=== PATIENT | female | born 1975 | race Caucasian/White ===

== ENCOUNTER 2016-10-07 07:26 | Observation (INO) | payer OTHER ==
[2016-10-07] VITALS (7 sets, daily range): BP systolic 133–152; BP diastolic 86–92; PULSE 79–94; RESP 12–20; O2SAT 96–98
[~2016-10-07] VITALS: Ht 162.6 cm; Wt 109.1 kg
[~2016-10-07 07:26] MED LIST: CLONAZEPAM0.5 M1 PO; IND10 PO; LEVO88TA28 PO; PROZAC20 M1 PO; [UNRECOGNIZED DRUG - OTHER]
--- NOTE | 2016-10-07 07:50 | ED.REPORT ---
HPI-Stroke / CVA Oct 07, 2016 ED Provider: Bill Bronson MD A pleasant 40 year old female with a history of HTN, and thyroid disease presents to the ER via POV complaining of lateralized left side numbness onset upon awakening this morning. Last known normal 21:00 last night. She states that she woke up with tingling of her left face, localized around her nose, that has since progressed to numbness of the left upper and lower extremities. Associated symptom of mild bilateral blurred vision. Patient denies changes in speech, difficulty swallowing, history of CVA, TIA or similar, recent medication changes, and anticoagulant use. Upon further questioning she admits to slight lightheadedness. Currently she is on hydrochlorothiazide, and scheduled to have blood work done in a month to determine if she should continue depression medications. Recently treated for a sinus infection with unknown antibiotic. Nursing Notes Stated Complaint: NUMBNESS LEFT SIDE OF FACE Chief Complaint: Neuro Symptoms/ Deficits Nursing Notes Reviewed: Yes Allergies: Coded Allergies: Penicillins (Verified Allergy, Severe, LOCALIZED SWELLING, 05/27/09) ciprofloxacin (Verified Allergy, Unknown, 10/07/16) ciprofloxacin HCl (Verified Allergy, Unknown, 10/07/16) latex (Verified Adverse Reaction, Mild, 04/26/12) sensitive to topical latex, redness Scheduled ([Trivox]) 8 MG DAILY (Reported) FLUoxetine-Expunged Drug, Do not Renew! (Prozac-Expunged Drug, Do not Renew!) 20 Mg Cap 40 MG PO DAILY (Reported) Levothyroxine-Expunged Drug, Do Not Renew! (Levoxyl-Expunged Drug, Do Not Renew! ) 88 Mcg Tablet 88 MCG PO DAILY (Reported) Propranolol-Expunged Drug, Do Not Renew! (Propranolol-Expunged Drug, Do Not Renew!) 10 Mg Tab 20 MG PO BID (Reported) clonazePAM-Expunged Drug, Do Not Renew! (clonazePAM-Expunged Drug, Do Not Renew! ) 0.5 Mg Tablet 0.5 MG PO DAILYP (Reported) General Time Seen by Provider: 07:47 Chief Complaint Numbness Face left, Arm left, Leg left Hx Obtained From: Patient Arrived By: Walk-in Time last known well 21:00 last night Sudden in Onset?: No Symptom Duration: Since onset Progression Since Onset: Gradually worsening Associated with: Denies: Gait problem, Speech problem Pertinent Negative: Pt denies other symptoms Context Related History: Denies: Cerebrovascular accident, Diabetes mellitus, Transient ischemic attack Similar Sx Previous: No Risk Factors )( TPA Administration/Criteria Stroke Thrombolytic Therapy : TPA Administered Intravenously: No, not indicated NIH Stroke Scale Level of Consciousness: Alert and responsive (0) Ask Month & Age: Both questions right (0) Open/Close Eyes/Hand Pot Annealer: Performs both tasks (0) Horizontal EO Movements: None (0) Visual Silvestre: No visual loss (0) Facial Palsy: Normal symmetry (0) Right Arm Motor Drift (10s): No drift 10 sec (0) Left Arm Motor Drift (10s): Drift, not touch bed (1) Right Leg Motor Drift (5s): No drift 5 sec (0) Left Leg Motor Drift (5s): Drift, not touch bed (1) Limb Ataxia FNF/Heel-Portillo: No ataxia (0) Sensation (Arms/Legs/Face): P-prick dull but felt (1) Language Aphasia: No aphasia, normal (0) Dysarthria: No dysarthria, normal (0) Extinction/Inattention: No exctinct/inattent (0) NIHSS Score: 3 Time NIHSS Performed: 08:12 Date NIHSS Performed: Oct 07, 2016 )( CVA Risk Stratification HypertensionNo Age >60, No Diabetes mellitus, No Hyperlipidemia, No Prior CVA/ TIA Risk factors reviewed Kelsie Coma Score > Age 5 Eye Opening: Open spontaneously (4) Verbal Response: Oriented (5) Motor Response: Obeys commands (6) [place] Coma Score: 15 Past Medical History Past Medical History Anxiety Reports: Hypertension, Denies: Coronary artery disease, Diabetes mellitus, Hyperlipidemia, Stroke, Transient ischemic attack Reports: Depression, Thyroid disease Past Surgical History Reports: Cholecystectomy, Hysterectomy, Tonsillectomy Family History Lung Cancer DM Smoking History Never Smoker Social History Other Social History: Good social support, Ambulatory Status Independent Review of Systems Constitutional: Denies: Chills, Fever Eyes: Reports: Blurred bilateral Respiratory: Denies: Non-productive cough, Shortness of breath Cardiovascular: Denies: Chest pain GI: Denies: Dysphagia Neurologic: Reports: Lightheaded, Numbness (Left face, Arm, Leg), Denies: Change LOC, Confusion, Headache, Problem walking, Slurred speech, Unable to speak, Vision change Complete sys rev & neg: except as marked. Physical Exam Initial Vital Signs Vital Signs (First) Date Time Temp Pulse Resp B/P Pulse Ox O2 Delivery O2 Flow Rate FiO2 10/07/16 07:32 36.4 91 12 133/91 97 Room Air Initial VS: Reviewed Skin: Warm, Dry, No cyanosis Psychiatric: Mood/affect normal, Behavior normal, Normal thought content General/Constitutional: Awake, Alert, Well developed, Well nourished Head / Eyes: Atraumatic, Normocephalic Neck: Supple, Full range of motion, No swelling, Non-tender, No carotid bruit Respiratory / Chest: Breath sounds NL, Breath sounds = bilat, No respiratory distress, No rales, No rhonchi, No wheezing Cardiovascular: Heart rate NL, Regular rhythm, Heart sounds NL, No murmurs, Peripheral circulation NL Neurologic: Oriented X3, Speech NL See NIH Stroke Scale in the Risk section of this note. Interpretation & Diagnostics Lab Results Interpretation Result Diagram: 10/07/16 0800 10/07/16 0800 Test 10/07/16 08:00 10/07/16 09:14 White Blood Count 7.0th/mm3 (3.8-10.1) Red Blood Count 4.91mil/mm3 (3.90-5.20) Hemoglobin 14.2g/dL (12.0-15.6) Hematocrit 41.6% (35.0-46.0) Mean Corpuscular Volume 84.7fL (81-100) Mean Corpuscular Hemoglobin 28.9pg (27.0-35.0) Mean Corpuscular Hemoglobin Concent 34.1% (32.0-37.0) Red Cell Distribution Width 12.9% (12.3-15.4) Platelet Count 278bil/L (150-400) Neutrophils (%) (Auto) 70.0% (40-74) Lymphocytes (%) (Auto) 21.6% (14-46) Monocytes (%) (Auto) 5.7% (4-12) Eosinophils (%) (Auto) 2.0% (0-5) Basophils (%) (Auto) 0.4% (0-3) Prothrombin Time 9.9sec (8.1-12.5) Prothromb Time International Ratio 0.93ratio Activated Partial Thromboplast Time 26.4sec (22.8-33.0) Sodium Level 138mEq/L (134-144) Potassium Level 3.6mEq/L (3.5-5.2) Chloride Level 103mEq/L (97-108) Carbon Dioxide Level 21mmol/L (18-29) Blood Urea Nitrogen 10mg/dL (6-24) Creatinine 0.53mg/dL (0.57-1.00) Estimat Glomerular Filtration Rate 183mL/min (>59) Glucose Level 134mg/dL (60-99) Calcium Level 8.7mg/dL (8.5-10.1) Total Bilirubin 0.3mg/dL (0.0-1.2) Aspartate Amino Transf (AST/SGOT) 21U/L (0-50) Alanine Aminotransferase (ALT/SGPT) 23U/L (0-32) Alkaline Phosphatase 95U/L (25-150) Troponin T 0.010ug/L (0.0-0.011) Total Protein 6.7g/dL (6.4-8.4) Albumin 4.0g/dL (3.4-5.0) Urine Opiates Screen Negative Urine Methadone Screen Negative Urine Barbiturates Screen Negative Urine Amphetamines Screen Negative Urine Benzodiazepines Screen Negative Urine Cocaine Metabolite Screen Negative Urine Cannabinoids Screen Negative Alcohol, Quantitative < 10mg/dL (0-10) Urine Color Straw (YELLOW) Urine Appearance Hazy (CLEAR,HAZY) Urine pH 7.0 (5.0-8.0) Urine Specific [place] 1.015 (1.003-1.035) Urine Protein Negativemg/dL (NEG,TRACE) Urine Glucose (UA) Negativemg/dL (NEGATIVE) Urine Ketones Negativemg/dL (NEGATIVE) Urine Occult Blood Negative (NEGATIVE) Urine Nitrite Negative (NEGATIVE) Urine Bilirubin Negative (NEGATIVE) Urine Urobilinogen Normalmg/dL (NORMAL) Urine Leukocyte Esterase Negative (NEGATIVE) Urine RBC 0-2/hpf (0-2) Urine WBC 0-5/hpf (0-5) Urine Epithelial Cells Occasional/hpf (NONE-MOD) Urine Crystals None seen (NONE SEEN) Urine Bacteria Few/hpf (NONE-FEW) Urine Hyaline Casts None/lpf (NONE) Urine Granular Casts None seen (NONE SEEN) Urine Waxy Casts None seen (NONE SEEN) Urine Red Blood Cell Casts None seen (NONE SEEN) Urine White Blood Cell Casts None seen (NONE SEEN) Urine Mucus None seen (None Seen) Urine Trichomonas None seen (NONE SEEN) Urine Yeast None (NONE SEEN) Urinalysis Comment None Urine Culture Reflexed Not indicated Lab Results Interpretation: Urinalysis negative. ECG Interpretation ECG Interpretation: Sinus rhythm, rate 93 Q waves in v1-v2, 3, and aVF unchanged from prior ECG. Time: 08:31 Interpreted by: ED physician CT Head Interpretation IMPRESSION: No acute intracranial abnormality. Dictated by: Rosio Bell M.D. on 10/07/2016 at 8:09 Approved by: Rosio Bell M.D. on 10/07/2016 at 8:09 Study: Head CT no contrast Interpretation / Wet Read by: Interpret - Radiologist Re-Eval/Medical Decision Med Decision/Clinical Course 40-year-old female history of hypertension, depression presenting with left-sided numbness and blurry vision that she noted when she woke up this morning. Also on abx for sinus infection. She was last normal when she went to bed last night at 9 PM. She is well out of the window for TPA. NIH stroke scale is 3. She has left upper extremity and left lower extremity drift and decreased sensation in complaining of blurry vision though able to count fingers. CT brain no acute pathology. Labs are stable. Patient will be admitted for CVA workup. Source of Hx: Old records Re-Evaluation/Progress : Time of Eval: 08:12 Re-Evaluation/Progress Note: Completed physical examination. Discussed physical examination results, differential diagnoses, and updated patient on the plan of care with plan to admit for stroke workup. Patient is amenable to the plan. Consultation : Referral / Consult Name: Linda Stone MD Consulted With: Hospitalist Call Returned at: 09:55 Seedling Sorter: Agrees with eval, Agrees with plan, Accepts admit Counseled Regarding: Diagnosis, Lab results, Need for admission Patient Discharge & Departure Impression: Primary Impression: CVA (cerebral vascular accident) Disposition: ADMITTED TO HOSPITAL Discharge Condition All VS Reviewed: Yes Condition: Stable Referrals: Amanda Brice MD (PCP) Scribe Attestation Portions of this note were transcribed by Ghanshyam Blue. IDr. Bronson, personally performed the history, physical exam and medical decision-making; I reviewed and confirmed the accuracy of the information in the transcribed note. Signed by: Gucci Rondon, 10/07/2016 - 09:56 copies to: Amanda Brice MD, Ben M MD Oct 07, 2016 07:50 GHANSHYAM BLUE Oct 07, 2016 07:59
--- NOTE | 2016-10-07 08:11 | DRSVH ---
PROCEDURE: CT BRAIN WITHOUT CONTRAST ([id number]) INDICATIONS: Stroke TECHNIQUE: Noncontrast 4.5 mm thick angled axial sections acquired from the foramen magnum to the vertex, with c oronal reformats. COMPARISON: [facility] [place] , CT, BRAIN W/O CONTRAST, 11/07/2007, 18:25. FINDINGS: Image quality: Excellent. CSF spaces: Basal cisterns are patent. No extra-axial fluid collections. Ventricles are normal in size and shape. Brain: No midline shift. No intracranial masses or hemorrhage. Brownlee-white matter interface is norm al. Skull and face: Calvarium and visualized facial bones are intact, without suspicious lesions. Sinuses: Visualized sinuses and mastoids are clear. IMPRESSION: No acute intracranial abnormality. Dictated by: Rosio Bell M.D. on 10/07/2016 at 8:09 Approved by: Rosio Bell M.D. on 10/07/2016 at 8:09
[2016-10-07 08:20] LABS: BASOPHILS % (AUTO) 0.4 % (0-3); MONOCYTES % (AUTO) 5.7 % (4-12); Mean Corpuscular Hemoglobin 28.9 pg (27.0-35.0); Mean Corpuscular Volume 84.7 fL (81-100); Platelet Count 278 bil/L (150-400)
[2016-10-07] MEDS ORDERED: Ondansetron 2 mg/mL 2 mL Inj IVPUSH ONE (08:30)
[2016-10-07 08:48] LABS: INR 0.93 ratio
[2016-10-07 08:53] LABS: TROPONIN T 0.01 ug/L (0.0-0.011)
[2016-10-07 09:24] LABS: APPEARANCE,URINE HAZY (CLEAR,HAZY); COLOR,URINE STRAW (YELLOW); OCCULT BLOOD,URINE NEGATIVE (NEGATIVE); UROBILINOGEN,URINE NORMAL (NORMAL)
--- NOTE | 2016-10-07 09:47 | NUR ---
Evaluation completed. Please go to "Notes" then click on "Assessments and Notes" (bottom left corner of screen). Then select appropriate discipline tab on top of screen.
[2016-10-07] MEDS ORDERED: Ondansetron 2 mg/mL 2 mL Inj IVPUSH PRN (10:00)
[2016-10-07] MEDS ORDERED: Polyethylene Glycol (PEG) 17 Gm Powder PO PRN (10:00)
[2016-10-07] MEDS ORDERED: DOXY100C2 PO (12:56)
[2016-10-07] MEDS ORDERED: THYR30TA2 PO (12:56)
[2016-10-07] MEDS ORDERED: THYR120T2 PO (12:56)
[2016-10-07] MEDS ORDERED: BUPR300T52 PO (12:56)
[2016-10-07] MEDS ORDERED: HYDR25TA4 PO (12:57)
[2016-10-07] MEDS ORDERED: FLUO20CA25 PO (12:57)
[2016-10-07] MEDS ORDERED: FAMO20T PO (12:57)
[2016-10-07] MEDS ORDERED: EPIN0.3P17 IJ (12:59)
--- NOTE | 2016-10-07 13:17 | NUR ---
Admit nurse note Admission assessment completed in the ER. Pt. denies complaints now but wonders about plan of care and MRI results. Hospitalist is yet to see pt. to pt. states she will wait to ask hospitalist her questions. Med rec completed per erx and pt. recall. Pt. states she is anaphylactically allergic to latex. Allergy sticker placed and other allergies verified. Primary RN notified of latex allergy. PT. declines information on advance directives. Pt. has hx of sleep apnea with CPAP but after a sleep study in July was told her sleep apnea has resolved since she has stopped being prescribed heavily sedating medications. She states she was told to use the CPAP at her discretion "just for snoring." at bedside. Report given to Deedee Rogers.
--- NOTE | 2016-10-07 13:23 | DRSVH ---
PROCEDURE: MRI STROKE PROTOCOL ([id number]) Pre- and post-contrast brain MRI, non-contrast brain MR angiogram, pre- and postcontrast neck MR rubio ogram INDICATIONS: lt sided weakness suspicious for stroke TECHNIQUE: Brain: Noncontrast axial T1 spin echo, axial T2 fast spin echo, sagittal and axial FLAIR, coronal T2 fast spin echo, axial gradient echo, axial diffusion and ADC through the brain. After the administr ation of contrast, axial 3D VIBE of the cranial vasculature and brain. Brain MRA: Non-contrast 3-D time of flight MR angiogram, with multiple nynhyht-zyzlmvaua-ezirvrfnzi (MIP) reformats performed. Neck MRA: Axial and sagittal TruFISP through the neck. Coronal dynamic MR angiogram during administ ration of contrast in the arterial and venous phases, with 3-dimenstional omrlyaa-jydiogogf-jywbfevsc n (MIP) reformats constructed from subtraction images. COMPARISON: None. FINDINGS: Image quality: Excellent. BRAIN: CSF spaces: Ventricles are normal in size and shape. Basal cisterns are patent. No extra-axial flu id collections. Brain: No intracranial bleeds or mass effects. Brownlee-white matter interface is normal. Diffusion we ighted images show no acute ischemic insults. Brainstem appears normal. 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 Normal intravascular flow voids are present. No abnormal intracranial enhanceme nt. Skull and face: Calvarial marrow signal is normal. Orbits appear normal. Sinuses: Sinuses and mastoids are clear. BRAIN MR ANGIOGRAM: Anterior circulation: Intracranial internal carotid arteries are normal in size and enhancement. Th e flow within the paired anterior cerebral arteries is normal and symmetric. The flow within the mid dle cerebral arteries is normal and symmetric. The anterior communicating artery is seen. No stenos es or occlusions. 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 The left ophthalmic artery aneurysm is oriented superior and medial. Posterior circulation: The visualized portions of the vertebral arteries demonstrate normal caliber, and join to form a normal appearing basilar artery. The flow within the posterior cerebral arteries is normal and symmetric. No stenoses, occlusions, or aneurysms. NECK MR ANGIOGRAM: Carotids: Great vessels demonstrate bovine variant anatomy as they arise from the aortic arch. The origins of the common carotid arteries appear patent. The calibers and courses of both common caroti d arteries are normal. The bifurcation regions appear normal bilaterally. The internal carotid perico erin demonstrate normal course and caliber. Posterior circulation: The origins of the vertebral arteries appear patent. More superior portions of both vertebral arteries demonstrate normal course and caliber, and join to form a normal appearing basilar artery. Miscellaneous: Subclavian arteries appear patent. Pre-contrast images through the neck show no soft tissue abnormalities. IMPRESSION: BRAIN MRI: 1. No acute intracranial disease process. 2. No areas of acute or chronic infarction. BRAIN MR ANGIOGRAM: 1. 3 x 4 mm left ophthalmic artery aneurysm. 2. Otherwise, negative MR angiogram of the head. NECK MR ANGIOGRAM: Negative examination. Findings discussed with Dr. Stone on 10/07/2016 at 1321 hrs. The estimate of stenosis included in the report of the imaging study was calculated using the NASCET method Dictated by: Georgiana Ramírez MD, PhD on 10/07/2016 at 12:54 Approved by: Georgiana Ramírez MD, PhD on 10/07/2016 at 13:22
--- NOTE | 2016-10-07 14:37 | PCM.DIMED ---
Discharge Instructions Date of Service Oct 07, 2016 Dates of Hospitalization Oct 07, 2016 at 12:54 Discharge Diagnosis Discharge Diagnosis left sided facial numbness Left ophthalmic artery aneurysm Patient Instructions You were hospitalized with stroke-like symptoms, found to have brain aneurysm, therefore, transferred to tertiary hospital for monitoring, possible intervention. Follow-up plan Please follow up with your primary doctor after you are discharged from [facility]. Follow-up Provider: Danielle Urena Follow-up with PCP in: 1 week Linda Stone MD Oct 07, 2016 14:37
--- NOTE | 2016-10-07 15:01 | PCM.HPMED ---
Subjective Date of Service Oct 07, 2016 Primary Provider: Admitting Physician: Linda Stone MD Primary Care Physician: Danielle Urena Attending Physician: Linda Stone MD Chief Complaint: lt sided facial numbness History of Present Illness: 40-year-old female with obesity, hypertension, hypothyroidism presented with left facial numbness, lightheadedness starting this morning. Patient was usual state of health until this morning. Patient treated with doxycycline 6 days ago for sinus infection, prescribed by primary doctor. Patient tolerated very well, still has some sinus congestion otherwise patient denied any unusual concerns recently. Patient woke up around 6 AM, noticed numbness and tingling mostly on left face, with mild blurry vision bilaterally but no blackout, initially symptoms were mild but continued, decided to come to hospital. Pt denied slurred speech, weakness of arms or legs, headache. Although pt was also mildly lightheaded Since in ED V/S, [id number], noted to have NIHSS3, CTH was negative. decided not to give tPA, out of window(last normal last night before went to bed). MR stroke protocol obtained which showed newly found lt ophthalmic aneurysm. Review of Systems: Pertinent positives as noted in history of present illness. All other systems were reviewed and are negative Allergies Coded Allergies: Penicillins (Verified Allergy, Severe, LOCALIZED SWELLING, 10/07/16) latex (Verified Allergy, Severe, Anaphylaxis, 10/07/16) ciprofloxacin (Verified Adverse Reaction, Intermediate, Nausea,Vomiting, ) Home Medications Hydrochlorothiazide 12.5 mg daily T3 20, 130mcg alternating daily PMH Hypertension Hypothyroidism Recent sinus infection Surgical History Cholecystectomy Tonsillectomy Hysterectomy Breast lumps removal Family History Father had diabetes and hypertension, traumatic head injury with stroke seizure Mother had lung cancer Social History Hx Alcohol Use: No Hx Substance Use: No Hx Tobacco Use: No Smoking Status: Never Smoker Additional Information 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 Exam Vital Signs Vital Sign - Last Date Time Temp Pulse Resp B/P Pulse Ox O2 Delivery O2 Flow Rate FiO2 10/07/16 09:23 89 20 147/87 98 Room Air 10/07/16 07:32 36.4 Exam NAD, comfortably laying down on the bed no JVD, MMM, no LAD RRR, nl s1, s2 no mrg CTAB, no w,c S,ND,NT,normoactive BS+ warm, no edema, pulses 2/2 Neuro:speech coherent, fluent, AAOx3 gait steady PERRLA, EOMI, symmetric face, no uvulae tongue deviation, able shrug shoulders equally able rotate neck equally on both sides FTN, dysdiadochokinesia intact, romberg negative, no pronator drift motor 5/5 throughout, sensory intact to dull touch Lab and Diagnostics Result Diagram: 10/07/16 0800 10/07/16 0800 Assessment & Plan 40-year-old female with hypertension presented with acute onset facial numbness and tingling acute, active #lt facial numbness and tingling, POA, resolved at the moment, CTH neg. -Given newly found ophthalmic artery aneurysm, possible relation with her current presentation, patient warrant further monitoring for possible intervention in tertiary hospital with neuro surgeon on board. -will transfer to [facility] chronic, presumed stable HTN sinus infection hypothyroidism dispo: today, transfer to [facility]. Time spent 65 minutes Linda Stone MD Oct 07, 2016 13:55
--- NOTE | 2016-10-07 15:03 | PCM.DC.MED ---
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 COMPARISON: [facility] , CT, BRAIN W/O CONTRAST, 11/07/2007, 18: 25. FINDINGS: Image quality: Excellent. CSF spaces: Basal cisterns are patent. No extra-axial fluid collections. Ventricles are normal in size and shape. Brain: No midline shift. No intracranial masses or hemorrhage. Brownlee-white matter interface is normal. Skull and face: Calvarium and visualized facial bones are intact, without suspicious lesions. Sinuses: Visualized sinuses and mastoids are clear. IMPRESSION: No acute intracranial abnormality. Dictated by: Rosio Bell M.D. on 10/07/2016 at 8:09 Approved by: Rosio Bell M.D. on 10/07/2016 at 8:09 PROCEDURE: MRI STROKE PROTOCOL ([id number]) Pre- and post-contrast brain MRI, non-contrast brain MR angiogram, pre- and postcontrast neck MR angiogram INDICATIONS: lt sided weakness suspicious for stroke TECHNIQUE: Brain: Noncontrast axial T1 spin echo, axial T2 fast spin echo, sagittal and axial FLAIR, coronal T2 fast spin echo, axial gradient echo, axial diffusion and ADC through the brain. After the administration of contrast, axial 3D VIBE of the cranial vasculature and brain. Brain MRA: Non-contrast 3-D time of flight MR angiogram, with multiple maximum- intensity-projection (MIP) reformats performed. Neck MRA: Axial and sagittal TruFISP through the neck. Coronal dynamic MR angiogram during administration of contrast in the arterial and venous phases, with 3-dimenstional lntpxof-vmrmssxlj-octzalkdkp (MIP) reformats constructed from subtraction images. COMPARISON: None. FINDINGS: Image quality: Excellent. BRAIN: CSF spaces: Ventricles are normal in size and shape. Basal cisterns are patent. No extra-axial fluid collections. Brain: No intracranial bleeds or mass effects. Brownlee-white matter interface is normal. Diffusion weighted images show no acute ischemic insults. Brainstem appears normal. 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 Normal intravascular flow voids are present. No abnormal intracranial enhancement. Skull and face: Calvarial marrow signal is normal. Orbits appear normal. Sinuses: Sinuses and mastoids are clear. BRAIN MR ANGIOGRAM: Anterior circulation: Intracranial internal carotid arteries are normal in size and enhancement. The flow within the paired anterior cerebral arteries is normal and symmetric. The flow within the middle cerebral arteries is normal and symmetric. The anterior communicating artery is seen. No stenoses or occlusions. 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 The left ophthalmic artery aneurysm is oriented superior and medial. Posterior circulation: The visualized portions of the vertebral arteries demonstrate normal caliber, and join to form a normal appearing basilar artery. The flow within the posterior cerebral arteries is normal and symmetric. No stenoses, occlusions, or aneurysms. NECK MR ANGIOGRAM: Carotids: Great vessels demonstrate bovine variant anatomy as they arise from the aortic arch. The origins of the common carotid arteries appear patent. The calibers and courses of both common carotid arteries are normal. The bifurcation regions appear normal bilaterally. The internal carotid arteries demonstrate normal course and caliber. Posterior circulation: The origins of the vertebral arteries appear patent. More superior portions of both vertebral arteries demonstrate normal course and caliber, and join to form a normal appearing basilar artery. Miscellaneous: Subclavian arteries appear patent. Pre-contrast images through the neck show no soft tissue abnormalities. IMPRESSION: BRAIN MRI: 1. No acute intracranial disease process. 2. No areas of acute or chronic infarction. BRAIN MR ANGIOGRAM: 1. 3 x 4 mm left ophthalmic artery aneurysm. 2. Otherwise, negative MR angiogram of the head. NECK MR ANGIOGRAM: Negative examination. Findings discussed with Dr. Stone on 10/07/2016 at 1321 hrs. The estimate of stenosis included in the report of the imaging study was calculated using the NASCET method Dictated by: Georgiana Ramírez MD, PhD on 10/07/2016 at 12:54 Approved by: Georgiana Ramírez MD, PhD on 10/07/2016 at 13:22 Brief History HPI obtained by . 40-year-old female with obesity, hypertension, hypothyroidism presented with left facial numbness, lightheadedness starting this morning. Patient was usual state of health until this morning. Patient treated with doxycycline 6 days ago for sinus infection, prescribed by primary doctor. Patient tolerated very well, still has some sinus congestion otherwise patient denied any unusual concerns recently. Patient woke up around 6 AM, noticed numbness and tingling mostly on left face, with mild blurry vision bilaterally but no blackout, initially symptoms were mild but continued, decided to come to hospital. Pt denied slurred speech, weakness of arms or legs, headache. Although pt was also mildly lightheaded Since in ED V/S, [id number], noted to have NIHSS3, CTH was negative. decided not to give tPA, out of window(last normal last night before went to bed). MR stroke protocol obtained which showed newly found lt ophthalmic aneurysm. Hospital Course 40-year-old female with hypertension presented with acute onset facial numbness and tingling acute, active #lt facial numbness and tingling, Symptoms were resolved quickly by the time of admission. Given newly found ophthalmic artery aneurysm, possible relation with her current presentation, patient warrant further monitoring for possible intervention in tertiary hospital with neuro surgeon on board. Dr. Dia Perez neurosurgeon at [facility] reviewed the imagines, accepted patient for transfer. Patient only stayed in the hospital for few hours as an inpatient. Patient is being [facility].patient is hypodermically stable, asymptomatic upon discharge. chronic, presumed stable HTN, BP remained stable, no Headache sinus infection, unremarkable on exam, hypothyroidism, presumed stable Exam Vital Signs (Last) Date Time Temp Pulse Resp B/P Pulse Ox O2 Delivery O2 Flow Rate FiO2 10/07/16 09:23 89 20 147/87 98 Room Air 10/07/16 07:32 36.4 Exam NAD, comfortably laying down on the bed no JVD, MMM, no LAD RRR, nl s1, s2 no mrg CTAB, no w,c S,ND,NT,normoactive BS+ warm, no edema, pulses 2/2 Neuro:speech coherent, fluent, AAOx3 gait steady PERRLA, EOMI, symmetric face, no uvulae tongue deviation, able shrug shoulders equally able rotate neck equally on both sides FTN, dysdiadochokinesia intact, romberg negative, no pronator drift motor 5/5 throughout, sensory intact to dull touch Test 10/07/16 08:00 10/07/16 09:14 White Blood Count 7.0th/mm3 (3.8-10.1) Red Blood Count 4.91mil/mm3 (3.90-5.20) Hemoglobin 14.2g/dL (12.0-15.6) Hematocrit 41.6% (35.0-46.0) Mean Corpuscular Volume 84.7fL (81-100) Mean Corpuscular Hemoglobin 28.9pg (27.0-35.0) Mean Corpuscular Hemoglobin Concent 34.1% (32.0-37.0) Red Cell Distribution Width 12.9% (12.3-15.4) Platelet Count 278bil/L (150-400) Neutrophils (%) (Auto) 70.0% (40-74) Lymphocytes (%) (Auto) 21.6% (14-46) Monocytes (%) (Auto) 5.7% (4-12) Eosinophils (%) (Auto) 2.0% (0-5) Basophils (%) (Auto) 0.4% (0-3) Prothrombin Time 9.9sec (8.1-12.5) Prothromb Time International Ratio 0.93ratio Activated Partial Thromboplast Time 26.4sec (22.8-33.0) Sodium Level 138mEq/L (134-144) Potassium Level 3.6mEq/L (3.5-5.2) Chloride Level 103mEq/L (97-108) Carbon Dioxide Level 21mmol/L (18-29) Blood Urea Nitrogen 10mg/dL (6-24) Creatinine 0.53mg/dL (0.57-1.00) Estimat Glomerular Filtration Rate 183mL/min (>59) Glucose Level 134mg/dL (60-99) Calcium Level 8.7mg/dL (8.5-10.1) Total Bilirubin 0.3mg/dL (0.0-1.2) Aspartate Amino Transf (AST/SGOT) 21U/L (0-50) Alanine Aminotransferase (ALT/SGPT) 23U/L (0-32) Alkaline Phosphatase 95U/L (25-150) Troponin T 0.010ug/L (0.0-0.011) Total Protein 6.7g/dL (6.4-8.4) Albumin 4.0g/dL (3.4-5.0) Urine Opiates Screen Negative Urine Methadone Screen Negative Urine Barbiturates Screen Negative Urine Amphetamines Screen Negative Urine Benzodiazepines Screen Negative Urine Cocaine Metabolite Screen Negative Urine Cannabinoids Screen Negative Alcohol, Quantitative < 10mg/dL (0-10) Urine Color Straw (YELLOW) Urine Appearance Hazy (CLEAR,HAZY) Urine pH 7.0 (5.0-8.0) Urine Specific [place] 1.015 (1.003-1.035) Urine Protein Negativemg/dL (NEG,TRACE) Urine Glucose (UA) Negativemg/dL (NEGATIVE) Urine Ketones Negativemg/dL (NEGATIVE) Urine Occult Blood Negative (NEGATIVE) Urine Nitrite Negative (NEGATIVE) Urine Bilirubin Negative (NEGATIVE) Urine Urobilinogen Normalmg/dL (NORMAL) Urine Leukocyte Esterase Negative (NEGATIVE) Urine RBC 0-2/hpf (0-2) Urine WBC 0-5/hpf (0-5) Urine Epithelial Cells Occasional/hpf (NONE-MOD) Urine Crystals None seen (NONE SEEN) Urine Bacteria Few/hpf (NONE-FEW) Urine Hyaline Casts None/lpf (NONE) Urine Granular Casts None seen (NONE SEEN) Urine Waxy Casts None seen (NONE SEEN) Urine Red Blood Cell Casts None seen (NONE SEEN) Urine White Blood Cell Casts None seen (NONE SEEN) Urine Mucus None seen (None Seen) Urine Trichomonas None seen (NONE SEEN) Urine Yeast None (NONE SEEN) Urinalysis Comment None Urine Culture Reflexed Not indicated Discharge Medications Discharge Medications Bupropion ER (Bupropion ER) 300 Mg Tab.er.24h 300 MG PO QAM (Reported) Fluoxetine (Fluoxetine) 20 Mg Capsule 40 MG PO QAM (Reported) Hydrochlorothiazide (Hydrochlorothiazide) 25 Mg Tablet 12.5 MG PO QAM (Reported ) Thyroid,Pork ([place] Thyroid) 30 Mg Tablet 30 MG PO QAM (Reported) Thyroid,Pork ([place] Thyroid) 120 Mg Tablet 120 MG PO QAM (Reported) As needed Epinephrine (Epinephrine) 0.3 Mg/0.3 Ml Auto.injct 0.3 MG IJ DIRECTED PRN PRN For Anaphyllaxis (Reported) Famotidine (Pepcid) 20 Mg Tablet 20 MG PO BID PRN PRN For Dyspepsia or Heartburn (Reported) Followup Plan Disposition: [facility] Time spent 65min Linda Stone MD Oct 07, 2016 14:34
[2016-10-07] MEDS ORDERED: Labetalol 5 mg/mL 4 mL Inj IVPUSH SCH (17:00)
--- NOTE | 2016-10-07 18:19 | NUR ---
Headache/Blood pressure Pt complaining of a "3/10" headache, given tylenol. Will monitor for effectiveness. Pt's blood pressure elevated (152/92) upon admission to the unit. Doctor notified. Order for 10mg labetolol IV obtained and given. Tele desk monitor notified. Blood pressure was rechecked and was 135/86.
--- NOTE | 2016-10-07 18:52 | NUR ---
Transfer Pt to transfer to [facility]. Report was called and given to the RN on . Transport came to pick patient up at 1850, patient being transported via ALS.
--- NOTE | 2016-10-08 13:31 | DRSVH ---
[facility] [address] [place] [address] Echocardiogram Report Name: HARLEEN RENTERIA DStudy Date: 10/07/2016 Height: 64 in Hospital Exam Location: [facility] Weight: 241 lb Gender: Female BSA: 2.1 m2 : 1975 Age: 40 yrs BP: 147/87 mmHg Reason For Study: Numbness Left Side of Face Ordering Physician: Performed By: [facility] Staff Interpretation Summary There is normal left ventricular wall thickness. The ejection fraction is estimated to be 55-60%. The interatrial septum is intact with no evidence for an atrial septal defect. Injection of contrast documented no interatrial shunt. There is no significant valvular heart disease. Procedure: A two-dimensional transthoracic echocardiogram with color flow and Doppler was performed. There is no prior echocardiogram noted for this patient. The study quality was technically difficult. A saline contrast injection was performed to assess for cardiac shunting. The patient was in normal sinus rhythm during the exam. Left Ventricle: The left ventricle is normal in size. There is normal left ventricular wall thickness. The ejection fraction is estimated to be 55-60%. There is left ventricular diastolic dysfunction. Right Ventricle: The right ventricle is normal in size and function. Atria: The left atrial size is normal. Right atrial size is normal. The interatrial septum is intact with no evidence for an atrial septal defect. Injection of contrast documented no interatrial shunt. Mitral Valve: The mitral valve is normal in structure and function. There is no mitral valve stenosis. There is trace mitral regurgitation. Aortic Valve: The aortic valve is normal in structure and function. There is no aortic valve stenosis. No aortic regurgitation is present. Tricuspid Valve: The tricuspid valve is normal in structure and function. There is trace tricuspid regurgitation. Pulmonic Valve: The pulmonic valve is normal in structure and function. There is trace pulmonic regurgitation. Great Vessels: The aortic root is normal size. The dimensions of the ascending aorta are normal. The pulmonary artery is normal size. The IVC is of normal diameter and collapses greater than 50% with a sniff. This suggests a low right atrial pressure of 3 mm Hg. Pericardium/ Pleura There is no pericardial effusion. There is no pleural effusion. MMode/2D Measurements & Calculations LVIDd: 4.5 cm RA long axis LVOT diam LVIDs: 3.1 cm LA A2 area: 18.5 cm FS: 32.3 % LA A4 area: 16.0 cm RA area AoV Opening EPSS: 0.74 cm LA length (vol): 4.9 cm IVSd: 0.80 cm LA vol: 51.5 ml : 14.4 cm Ao root diam LVPWd: 0.79 cm LA vol index RA vol : 40.3 ml asc Aorta RA Diam: 3.3 cm IVC diam: 1.3 cm : 19.0 mm/ RVDd major : 5.6 cm LV martinez. diameter/BSA LV sys. diameter/BSA RVD1 (basal) RVD2 (mid) (cm/m^2): 2.1 (cm/m^2): 1.5 : 2.3 cm Doppler Measurements & Calculations Ao V2 max MV E max aly MV E/A: 0.84 PA V2 max : 160.2 cm/sec : 68.9 cm/sec Med Peak E' Aly : 80.3 cm/sec Ao max PG MV A max aly PA mean PG : 10.3 mmHg : 82.0 cm/sec E/E' med: 7.9 Ao mean PG MV P1/2t: 44.0 msec Lat Peak E' Aly PA Accel Time : 0.16 sec LVOT Max Aly E/E' lat: 6.0 : 102.8 cm/sec E/e' average: 6.9 MARI(I,D): 1.7 cm Pulm A Revs Dur sev ratio MV dec time MV P1/2t max aly Ao V2 mean LV V1 max PG : 0.15 sec : 103.9 cm/sec Ao V2 VTI: 24.6 cm LV V1 VTI MVA(P1/2t): 5.0 cm2 : 14.4 cm MARI(V,D): 1.9 cm2 PA V2 mean MARI indexed to BSA : 52.1 cm/sec (cm^2/m^2): 0.81 Electronically signed by: Phillip Gardner on Reading Physician:10/08/2016 01:30 PM
== END 2016-10-07 18:55 | disposition short-term general hospital (02) ==
LOC: SED 07:26 → MOC 12:54
PROVIDERS: ADMIT Internal Medicine; ATTEND Internal Medicine
DX: G45.9 Transient cerebral ischemic attack, unspecified (principal); I72.8 Aneurysm of other specified arteries; R20.0 Anesthesia of skin; R53.1 Weakness; H53.8 Other visual disturbances; R29.703 NIHSS score 3; I10 Essential (primary) hypertension; F41.9 Anxiety disorder, unspecified; E66.9 Obesity, unspecified; F32.9 Major depressive disorder, single episode, unspecified; E03.9 Hypothyroidism, unspecified; Z88.0 Allergy status to penicillin; Z88.8 Allergy status to other drugs, medicaments and biological substances; Z88.9 Allergy status to unspecified drugs, medicaments and biological substances; Z68.41 Body mass index [BMI] 40.0-44.9, adult
CPT/HCPCS: 36415; 70450; 70549; 70553; 80053; 81000; 81025; 82948; 84484; 85025; 85610; 85730; 92610; 93005; 96374; 99285; A9585; C8929; G0378; G0480; G8996; G8997; G8998